=== PATIENT | female | born 1990 | race Caucasian/White ===

== ENCOUNTER 2018-02-01 09:04 | Emergency (ER) | payer BC ==
[~2018-02-01] VITALS: Ht 160 cm; Wt 118.2 kg
[~2018-02-01 09:04] MED LIST: ADIPEX-P37.5 MG PO; BACTRIM DS 8001 TAB PO; BIRTH CONTROL; CEPHALEXIN500 M1; LORTAB 7.5/5001 TAB PO; MIRENA52 MG IU; NO HOME MEDICATIONS; NORCO 325 MG-51 TAB PO; PHENERGAN 25 TA25 MG PO; PRIL40 PO; ULTRAM 50MG TAB50 MG PO
[2018-02-01 11:36] VITALS: BP 139/73; PULSE 78; TEMP 98.2
== END 2018-02-01 12:45 | disposition home or self-care (01) ==
LOC: COL.ER 09:04 → EUO 11:03
DX: O21.9 Vomiting of pregnancy, unspecified (principal); Z3A.01 Less than 8 weeks gestation of pregnancy

== ENCOUNTER 2021-04-28 15:31 | Inpatient (IN) | payer BC ==
[~2021-04-28] VITALS: Ht 160 cm; Wt 125.9 kg
[2021-04-28] VITALS (29 sets, daily range): BP systolic 119–160; BP diastolic 57–89; PULSE 77–95; TEMP 98–98.7
--- NOTE | 2021-04-28 15:15 | NUR ---
PATIENT HERE WITH DECREASED MOVEMENT. PATIENT HAS HAD A HEADACHE AND SPOTS IN HER VISION YESTERDAY AND TODAY. PATIENT IS HERE WITH . SVE PREFORMED BY YAA EDWARDS. PATIENT DENIES BLEEDING. FEELING MODERATE CONTRACTIONS
[~2021-04-28 15:31] MED LIST changes: +PRENATAL; +ZYRTEC5 MG PO
[2021-04-28 16:09] LABS: COLLECTION METHOD CLEAN CATCH
[2021-04-28 16:12] LABS: BASO % 0.2 % (0.0-2.0); EOS # 0.1 (0.0-0.7); GRAN # 5.5 (1.4-6.5); GRAN % 67.5 % (42.2-75.2); HEMOGLOBIN 11.7 g/dl (12.5-16.0); LYMPH % 23.8 % (20.0-51.0); MEAN CELL VOLUME 91 fl (80.0-100.0); MEAN CORPUSCULAR HEMOGLOBIN 30 pg (27.0-31.0); MEAN CORPUSCULAR HGB CONC 33 g/dl (33.0-37.0); MEAN PLATELET VOLUME 10.3 fl (7.4-10.4); MONO # 0.6 (0.1-0.6); PLATELET COUNT 305 K/mm3 (130-400)
[2021-04-28 16:17] LABS: HEMATOCRIT 35.4 % (37.0-47.0)
[2021-04-28 16:22] LABS: ALBUMIN 3.2 gm/dL (3.5-5.0); BILIRUBIN,TOTAL 0.2 mg/dL (0.0-1.0); CALCIUM 9.1 mg/dL (8.4-10.2); CREATININE, serum 0.57 (0.52-1.25); POTASSIUM 3.9 mmol/L (3.4-5.0); TOTAL PROTEIN 6.6 gm/dL (6.4-8.2)
[2021-04-28 16:48] LABS: PH 6 (5-8); SQUAMOUS EPITHELIAL 0-2 /hpf; URINE APPEARANCE Clear; URINE BACTERIA Rare /hpf; URINE BILIRUBIN Negative (NEGATIVE); URINE BLOOD 1+ (NEGATIVE); URINE COLOR Colorless; URINE GLUCOSE Negative (NEGATIVE); URINE KETONE Negative (NEGATIVE); URINE LEUKOCYTE ESTERASE Negative (NEGATIVE); URINE NITRATE Negative (NEGATIVE); URINE PROTEIN(semi-quant) Negative (NEGATIVE); URINE RBC 0-2 /hpf; URINE UROBILINOGEN Negative (NEGATIVE)
--- NOTE | 2021-04-28 17:21 | NUR ---
PATIENT STATES SHE IS STARTING TO FEEL CONTRACTIONS
--- NOTE | 2021-04-28 21:45 | NUR ---
Dr. Gloria at bedside reviewing plan of care with patient. AROM performed at this time, small amount of clear fluid returned. SVE /-2. Pt encourage to stay in bed for about 20 minutes. May get epidural whenever she desires. Spouse supportive at bedside.
--- NOTE | 2021-04-28 22:32 | NUR ---
2220 - Pt reports feeling more rectal pressure. SVE 5/90/-2. 2223 - Roberta Cole CRNA at bedside. Epidural procedure, risks, and benefits reviewed with patient and spouse, pt verbalized understanding. Pt positioned to sitting on edge of bed. 2230 - Difficulty tracing FHR due to maternal positioning. RN attempted to hand hold monitors. Tracing maternal HR verified by pulse ox. 2232 - Test dose by CHUCK Michael. Pt denies any adverse reactions. 2240 - Pt positioned to wedge left. Monitors adjusted. Safety precautions reviewed with patient. Call light within reach. Bed in low and locked position. See anesthesia record.
--- NOTE | 2021-04-28 23:20 | NUR ---
Javier catheter placed to dependent drainage at this time. Clear, yellow urine returned. Secured to leg with statlock. SVE 5-/-2.
[2021-04-29] VITALS (28 sets, daily range): BP systolic 117–153; BP diastolic 51–88; PULSE 80–134; TEMP 97.7–99.1
--- NOTE | 2021-04-29 02:45 | NUR ---
0245 - SVE complete/0. Pt comfortable with epidural. Educated on pushing techniques, pt verbalized understanding. Javier catheter removed. 100 mL clear yellow urine out. 0300 - Pt positioned into lithotomy position. Initial push at this time.
--- NOTE | 2021-04-29 04:02 | NUR ---
0330 - Pt pushing well with contractions. RN at bedside. 0345 - Pt continues to push well with contractions. Small crown with push. Dr. Gloria notified for delivery, see physician notification. 0400 - Dr. Tyson gowned and gloved at perineum. Nursery nurse Pennie Dodd at bedside. 0402 - Spontaneous vaginal delivery of viable infant girl. Infant placed to mother's abdomen. Care of infant assumed to YAA Mckeon. Cord clamped x 2 and cut by FOB. Cord blood obtained. Pitocin off. 0407 - Spontaneous delivery of intact placenta. Fundal massage started by Dr. Gloria. Pitocin restarted at 333 mL/hr. 1st degree perineal laceration repaired by Dr. Gloria. Fundus firm and down 2 from umbilicus. Red johanne by Dr. Gloria. 0410 - Pericare provided. New chux beneath patient. Ice pack to perineum. Pt repositioned in bed for comfort. recovery started. See physician delivery note.
[2021-04-30 00:40] VITALS: BP 140/81; PULSE 73; TEMP 98
[2021-04-30 07:54] VITALS: BP 140/84; PULSE 72; TEMP 97.7
--- NOTE | 2021-04-30 10:03 | NUR ---
Initial visit; Parents thanked [employer] for offering congratulations and God's blessings for the of their daughter. [employer] thanked family for choosing [facility].
[2021-04-30] MEDS ORDERED: IBU800 M1 PO (11:41)
== END 2021-04-30 12:50 | disposition home or self-care (01) | DRG 807 ==
LOC: LDRO 15:31 → LDR 15:46 → LDRO 16:45 → OB 16:46 → LDR 16:46 → OB 04-29 07:15
PROVIDERS: ADMIT Student in an Organized Health Care Education/Training Program
PROC: 10E0XZZ Delivery of Products of Conception, External Approach (ICD-10-PCS; principal; 2021-04-28)
PROC: 10907ZC Drainage of Amniotic Fluid, Therapeutic from Products of Conception, Via Natural or Artificial Opening (ICD-10-PCS; 2021-04-28)
PROC: 0HQ9XZZ Repair Perineum Skin, External Approach (ICD-10-PCS; 2021-04-28)
DX: O10.92 Unspecified pre-existing hypertension complicating childbirth (principal); Z37.0 Single live birth; O99.02 Anemia complicating childbirth; D64.9 Anemia, unspecified; O99.214 Obesity complicating childbirth; E66.01 Morbid (severe) obesity due to excess calories; O99.62 Diseases of the digestive system complicating childbirth; K21.9 Gastro-esophageal reflux disease without esophagitis; O70.0 First degree perineal laceration during delivery; Z3A.38 38 weeks gestation of pregnancy
CPT/HCPCS: J2590; J7120

== ENCOUNTER 2023-02-05 07:00 | Outpatient (RCR) | payer BC ==
[~2023-02-05 07:00] MED LIST changes: +IBU800 M1 PO
== END 2023-02-06 | disposition home or self-care (01) ==
LOC: PT.GENESIS
DX: M25.561 Pain in right knee (principal)

== ENCOUNTER → 2023-11-11 | Outpatient (CLI) | payer BC | LOC: MC.RAD 13:32 | DX: N64.4 Mastodynia (principal) ==